=== PATIENT | female | born 1960 | race African-American/Black ===

== ENCOUNTER 2017-06-11 16:31 | Emergency (ER) | payer SELFPAY ==
[2017-06-11 16:36] VITALS: BP 153/87; PULSE 96; TEMP 97.8; BMI 22.3
[2017-06-11] MEDS ORDERED: IBUPROFEN 400 MG TABLET (FP) PO ONE ×2 (17:29→17:32)
[2017-06-11] MEDS ORDERED: ALBUTEROL SO4 2.5/IPRATROPIUM 0.5 INH SOL 3 ML VIAL.NEB. NEB ONE ×2 (17:30→17:32)
--- NOTE | 2017-06-11 17:37 | PDOC ---
History of Present Illness - General Chief Complaint: Cold Symptoms Stated Complaint: COLD SYMPTOMS Time Seen by Provider: 06/11/17 17:11 History Source: Patient Exam Limitations: No Limitations - History of Present Illness Initial Comments: 06/11/17 17:30 Here with complaints of more than a week of cough, pleuritic chest pain, some dizziness with a strong cough, and yellow phlegm production that started yesterday. Has not taken temperature but thinks may have had fevers and chills a few days ago. Has taken no medication for relief of symptoms and states has been unable to buy any medicines because she has no insurance or any money. Timing/Duration: reports: intermittent Severity: reports: moderate Associated Symptoms: reports: chest pain/soreness, cough, fever/chills, lightheadedness, nasal congestion Past History - Past Medical History Allergies/Adverse Reactions: Allergies Allergy/AdvReac Type Severity Reaction Status Date / Time No Known Drug Allergies Allergy Verified 06/11/17 16:36 Home Medications: Ambulatory Orders Acetaminophen 500 mg PO Q6H #14 tablet 06/11/17 Azithromycin [Zithromax -] 250 mg PO UTDICT #6 tab 06/11/17 COPD: No Diabetes: (borderline) HTN: Yes - Immunization History Immunization Up to Date: No - Suicide/Smoking/Psychosocial Hx Smoking History: Never smoked Have you smoked in the past 12 months: No If you are a former smoker, when did you quit?: 30YRS AGO Information on smoking cessation initiated: No Hx Alcohol Use: No Drug/Substance Use Hx: No Substance Use Type: None Respiratory Specific PMHX - Complaint Specific PMHX Bronchitis: No Pneumonia: No Review of Systems - Review of Systems Able to Perform ROS?: Yes Is the patient limited Amharic proficient: Yes Constitutional: Yes: Symptoms Reported, See HPI, Fever, Malaise HEENTM: Yes: Symptoms Reported, See HPI, Nose Congestion Respiratory: Yes: See HPI, Cough, Orthopnea, Wheezing Cardiac (ROS): Yes: See HPI, Chest Pain. No: Symptoms Reported ABD/GI: Yes: Symptoms Reported Musculoskeletal: Yes: Symptoms Reported Integumentary: Yes: Symptoms Reported All Other Systems: Reviewed and Negative *Physical Exam - Vital Signs Last Vital Signs Temp Pulse Resp BP Pulse Ox 97.8 F 96 H 19 153/87 100 06/11/17 16:33 06/11/17 16:33 06/11/17 16:33 06/11/17 16:33 06/11/17 16:33 - Physical Exam General Appearance: Yes: Nourished, Appropriately Dressed, Apparent Distress, Mild Distress HEENT: positive: JULES, TMs Normal (ingested but landmarks easily visualized), Pharynx Normal (posterior sinus drainage), Rhinorrhea Neck: positive: Supple. negative: Tender, Lymphadenopathy (R), Lymphadenopathy (L) Respiratory/Chest: positive: Lungs Clear (course with some and expiratory wheezing throughout. Some clearing with cough), Normal Breath Sounds Gastrointestinal/Abdominal: positive: Soft. negative: Tender Extremity: positive: Normal Capillary Refill, Normal Inspection, Normal Range of Motion Integumentary: positive: Normal Color, Dry, Warm, Pale Neurologic: positive: behavioral specialist II-XII NML intact, Fully Oriented, Alert, Normal Mood/ Affect, Normal Response, Motor Strength 5/5 Heart Score/ECG Review - ECG Intrepretation Rhythm: Regular Rhythm - ECG Impressions Normal ECG: Yes Non-specific ST Elevation: No Ischemic Changes: No Progress Note - Progress Note Progress Note: Acute bronchitis, patient refuses DuoNeb due to the fact she has never used inhaler lesion medication before. When explained the mechanism and the cause patient continues to refuse that medication. Patient has been resistant for Medicaid of therapy but agrees to having prescriptions for Zithromax to treat a bronchitis, and Tylenol sent to [facility] pharmacy. When asked why she wasn't seeing a doctor, I told her that she had been triaged to fast track and the physicians do not work in fast track. When offered to be seen by a physician and explained would need to be re-qued in the waiting room patient refused and stated she would go to pharmacy to sweet pickle maker these medications. *DC/Admit/Observation/Transfer Diagnosis at time of Disposition: Bronchitis - Discharge Dispostion Disposition: HOME Condition at time of disposition: Stable Admit: No - Referrals - Patient Instructions Printed Discharge Instructions: DI for Acute Bronchitis Additional Instructions: Rest, drink lots of fluids: Teas, water, soups, Pedialyte Saltwater gargles Steamy showers/seem to face break up mucus Avoid contact with others until fevers and cough resolved Lots of handwashing and good hygiene Continue [id number] medications for symptomatic relief Tylenol or Motrin for fever and pain Azithromycin, antibiotic for treatment of bronchitis Followup with private physician in one to 2 days as needed Return to emergency department for worsened symptoms, fevers, dehydration - Post Discharge Activity
--- NOTE | 2017-06-12 10:12 | EKG ---
Test Reason : Blood Pressure : / mmHG Vent. Rate : 084 BPM Atrial Rate : 084 BPM P-R Int : 170 ms QRS Dur : 088 ms QT Int : 362 ms P-R-T Axes : 073 048 067 degrees QTc Int : 427 ms NORMAL SINUS RHYTHM NORMAL ECG WHEN COMPARED WITH ECG OF 03-APR-2017 14:04, NO SIGNIFICANT CHANGE WAS FOUND Confirmed by MD HAILEE, MELANIE ([id number]) on 06/12/2017 10:11:38 AM Referred By: Confirmed By:MELANIE STEPHEN MD
== END 2017-06-11 17:53 | disposition home or self-care (01) ==
LOC: JERFT 16:31
PROC: 3E0F7GC Introduction of Other Therapeutic Substance into Respiratory Tract, Via Natural or Artificial Opening (ICD-10-PCS; principal; 2017-06-11)
DX: J40 Bronchitis, not specified as acute or chronic (principal)
CPT/HCPCS: 93005; 93010; 99281-25

== ENCOUNTER 2018-06-09 13:09 | Emergency (ER) | payer SELFPAY ==
[2018-06-09 13:15] VITALS: BP 155/89; PULSE 104; TEMP 97.8; BMI 23.8
--- NOTE | 2018-06-09 13:15 | PDOC ---
Rapid Medical Evaluation Time Seen by Provider: 06/09/18 13:10 Medical Evaluation: Allergies Allergy/AdvReac Type Severity Reaction Status Date / Time No Known Drug Allergies Allergy Verified 01/20/18 13:33 06/09/18 13:11 I have performed a brief in-person evaluation of this patient. The patient presents with a chief complaint of: sore throat x1 week, hoarseness Pertinent physical exam findings: VSS. AF. OP- cobblestoning present. No erythema, lesions, exudates. Lungs CTAB I have ordered the following: nothing The patient will proceed to the ED for further evaluation. Discharge Disposition - Diagnosis Pharyngitis - Referrals - Patient Instructions - Post Discharge Activity
[2018-06-09 14:27] LABS: URINE APPEARANCE CLOUDY; URINE BILIRUBIN NEGATIVE (<2.0 mg/dL); URINE GLUCOSE (UA) NEGATIVE (NEGATIVE); URINE KETONE NEGATIVE (NEGATIVE); URINE LEUK ESTERASE NEGATIVE (NEGATIVE); URINE NITRITE NEGATIVE (NEGATIVE); URINE PROTEIN 2+ (NEGATIVE)
[2018-06-09 14:29] LABS: URINE COLOR DK YELLOW
[2018-06-09 14:37] LABS: EPI CELLS RARE /HPF (FEW); URINE BACTERIA MANY /hpf (NONE SEEN); URINE MUCUS FEW; YEAST MODERATE
--- NOTE | 2018-06-09 14:54 | PDOC ---
History of Present Illness - General Chief Complaint: Sore Throat Stated Complaint: EVALUATION Time Seen by Provider: 06/09/18 13:10 - History of Present Illness Initial Comments: 06/09/18 14:49 57 y/o homeless unkept lady denies comorbities presents for evaluation of dysuria, dark tea colored urine, and malise x 3 days Past History - Past Medical History Allergies/Adverse Reactions: Allergies Allergy/AdvReac Type Severity Reaction Status Date / Time No Known Drug Allergies Allergy Verified 06/09/18 13:15 Home Medications: Ambulatory Orders NK [No Known Home Medication] 06/09/18 COPD: No Diabetes: Yes (borderline) HTN: Yes - Immunization History Immunization Up to Date: No - Suicide/Smoking/Psychosocial Hx Smoking History: Never smoked Have you smoked in the past 12 months: No If you are a former smoker, when did you quit?: 30YRS AGO Information on smoking cessation initiated: No Hx Alcohol Use: No Drug/Substance Use Hx: No Substance Use Type: None Review of Systems - Review of Systems Constitutional: No: Fever : Yes: Dysuria *Physical Exam - Vital Signs Last Vital Signs Temp Pulse Resp BP Pulse Ox 97.8 F 104 H 18 155/89 99 06/09/18 13:13 06/09/18 13:13 06/09/18 13:13 06/09/18 13:13 06/09/18 13:13 - Physical Exam Comments: 06/09/18 14:50 HEAD: NC/AT EYES: Conjuntiva clear Ears: Canals and TM's normal NOSE: No d/c THROAT: Moist mucous membrances, oral pharanx clear, uvula midline NECK: Supple without adenopathy CARDIAC: S1 S2 LUNGS: CTA Full and Equal breath sounds ABDOMEN: Soft NT ND MS: Full ROM in all joints without edema NEUROLOGIC: No gross sensory or motor deficits, NVID SKIN: Normal color and temperature no lesions or rashes General Appearance: Yes: Disheveled Moderate Sedation - Procedure Monitoring Vital Signs: Procedure Monitoring Vital Signs Temperature 97.8 F 06/09/18 13:13 Pulse Rate 104 H 06/09/18 13:13 Respiratory Rate 18 06/09/18 13:13 Blood Pressure 155/89 06/09/18 13:13 O2 Sat by Pulse Oximetry (%) 99 06/09/18 13:13 ED Treatment Course - ADDITIONAL ORDERS Additional order review: Laboratory Results 06/09/18 14:00 Urine Color Dk yellow Urine Appearance Cloudy Urine pH 5.0 Ur Specific Payne 1.024 Urine Protein 2+ H Urine Glucose (UA) Negative Urine Ketones Negative Urine Blood 3+ H Urine Nitrite Negative Urine Bilirubin Negative Urine Urobilinogen 2.0 H Ur Leukocyte Esterase Negative Urine WBC (Auto) 14 Urine RBC (Auto) 2379 Ur Epithelial Cells Rare Urine Bacteria Many Urine Mucus Few Urine Yeast Moderate Medical Decision Making - Medical Decision Making 06/09/18 14:50 CBC and Comp ordered after UA reviewed, concerned about renal insuffiency and new onset DM, discussed with pt who refused blood work and elected to sign out AMA *DC/Admit/Observation/Transfer Diagnosis at time of Disposition: Dysuria Diagnosis at time of Disposition: (Ruled Out): Pharyngitis - Discharge Dispostion Disposition: AGAINST MEDICAL ADVICE Condition at time of disposition: Stable Decision to Admit order: No - Referrals Referrals: Sandy Tao MD [Staff Physician] - - Patient Instructions Printed Discharge Instructions: DI for Dysuria -- Adult Additional Instructions: Return to the ER should you require further treatment or you have further concerns, please follow up with a primary care physician in 1-2 days for futher evlaution - Post Discharge Activity
== END 2018-06-09 15:10 | disposition left against medical advice (07) ==
LOC: JERFT 13:09
DX: J02.9 Acute pharyngitis, unspecified (principal); R30.0 Dysuria; E11.9 Type 2 diabetes mellitus without complications
CPT/HCPCS: 81003; 81015; 99281-25

== ENCOUNTER → 2020-11-19 | Emergency (ER) | payer SELFPAY ==
[2020-11-19 13:52] VITALS: BP 160/85; PULSE 84; TEMP 98.8; BMI 34.2
== END ==
LOC: JERFT 13:40
DX: M25.112 Fistula, left shoulder (principal)
CPT/HCPCS: 99281-25

== ENCOUNTER 2023-09-15 19:02 | Emergency (ER) | payer SELFPAY ==
[2023-09-15 19:10] VITALS: BP 170/69; PULSE 72; RESP 18; TEMP 98.2; BMI 36.2
[2023-09-15] MEDS ORDERED: IBUPROFEN 400 MG TABLET (FP) PO ONE (20:42)
[2023-09-15] MEDS: IBUPROFEN 400 MG TABLET (FP) PO ONE (20:45)
== END 2023-09-15 21:06 | disposition home or self-care (01) ==
LOC: JERFT 19:02
DX: M79.644 Pain in right finger(s) (principal); M19.041 Primary osteoarthritis, right hand
CPT/HCPCS: 73140-TC-RT-FY; 99283-25

== ENCOUNTER 2024-04-02 16:17 | Emergency (ER) | payer SELFPAY ==
[2024-04-02 16:35] VITALS: BP 155/78; PULSE 84; RESP 16; TEMP 98; BMI 32.9
== END 2024-04-02 19:32 | disposition home or self-care (01) ==
LOC: JER 16:17 → JERFT 16:17
DX: M25.561 Pain in right knee (principal); M25.461 Effusion, right knee
CPT/HCPCS: 73562-TC-RT-FY; 93971-TC; 99284-25

== ENCOUNTER 2024-04-06 14:44 | Emergency (ER) | payer SELFPAY ==
[2024-04-06 14:52] VITALS: TEMP 98.2; BMI 34.3
[2024-04-06 16:02] LABS: BASO % 0.6 % (0-2.0); EOS % 5.9 % (0-4.5); HEMATOCRIT 35.5 % (32.4-45.2); HEMOGLOBIN 11.8 GM/dL (10.7-15.3); MCH 28.1 pg (25.7-33.7); MCHC 33.3 g/dl (32.0-36.0); MEAN CELL VOLUME 84.3 fl (80-96); MEAN PLT VOLUME 7.4 fl (7.5-11.1); MONO % 9.1 % (3.8-10.2); NEUT % 56.4 % (42.8-82.8); PLATELET COUNT 256 10^3/uL (134-434); RBC 4.22 M/mm3 (3.60-5.2); RDW 14.4 % (11.6-15.6); WHITE BLOOD COUNT 4.6 K/mm3 (4.0-10.0)
[2024-04-06] MEDS ORDERED: ACETAMINOPHEN 500 MG TABLET (FP) ONE (16:04)
[2024-04-06] MEDS: ACETAMINOPHEN 500 MG TABLET (FP) PO ONE (16:08)
[2024-04-06 16:17] LABS: ACTIVATED PTT 33.8 SECONDS (25.2-36.5); INR 0.97 (0.83-1.09); PROTHROMBIN TIME (PATIENT) 11.2 SEC (9.7-13.0)
[2024-04-06 16:50] LABS: POTASSIUM 3.6 mmol/L (3.5-5.1)
[2024-04-06 16:51] LABS: CALCIUM 9.4 mg/dL (8.5-10.1)
[2024-04-06 16:53] LABS: ALBUMIN 3.7 g/dl (3.4-5.0); BLOOD UREA NITROGEN 16.4 mg/dL (7-18); MAGNESIUM 2.1 mg/dL (1.8-2.4)
[2024-04-06 16:55] LABS: CREATININE 0.9 mg/dL (0.55-1.3)
[2024-04-06 16:57] LABS: BILIRUBIN,TOTAL 0.5 mg/dL (0.2-1); TOT PROT 7.4 g/dl (6.4-8.2)
[2024-04-06 17:01] LABS: N-TERMINAL BNP 76.4 pg/ml (5-125)
[2024-04-06 18:04] VITALS: BP 143/75; PULSE 82; RESP 14
== END 2024-04-06 19:26 | disposition home or self-care (01) ==
LOC: JER 14:44
DX: R07.89 Other chest pain (principal); R06.02 Shortness of breath; R11.0 Nausea
CPT/HCPCS: 36415; 71045-TC-FY; 71275-TC; 80053; 82550; 82553; 83735; 83880; 84484; 85025; 85379; 85610; 85730; 86850; 86900; 86901; 93005; 93010; 99285-25

== ENCOUNTER 2024-07-21 18:27 | Inpatient (IN) | payer SELFPAY ==
[2024-07-21 20:33] LABS: BASO % 1.2 % (0-2.0); HEMATOCRIT 32.4 % (32.4-45.2); HEMOGLOBIN 10.6 GM/dL (10.7-15.3); LYMPH % 21.4 % (8-40); MCH 27.3 pg (25.7-33.7); MCHC 32.8 g/dl (32.0-36.0); MEAN CELL VOLUME 83.3 fl (80-96); MEAN PLT VOLUME 7.3 fl (7.5-11.1); MONO % 7.8 % (3.8-10.2); NEUT % 60.6 % (42.8-82.8); PLATELET COUNT 285 10^3/uL (134-434); RBC 3.89 M/mm3 (3.60-5.2); RDW 14.6 % (11.6-15.6); WHITE BLOOD COUNT 5.9 K/mm3 (4.0-10.0)
[2024-07-21 20:45] LABS: INR 1.05 (0.83-1.09); PROTHROMBIN TIME (PATIENT) 11.5 SEC (9.7-13.0)
[2024-07-21 20:47] LABS: ACTIVATED PTT 32.3 SECONDS (25.2-36.5)
[2024-07-21 20:52] LABS: POTASSIUM 3.4 mmol/L (3.5-5.1)
[2024-07-21 20:54] LABS: CALCIUM 8.9 mg/dL (8.5-10.1)
[2024-07-21 20:55] LABS: BLOOD UREA NITROGEN 16.1 mg/dL (7-18); MAGNESIUM 1.9 mg/dL (1.8-2.4)
[2024-07-21 20:58] LABS: CREATININE 0.8 mg/dL (0.55-1.3)
[2024-07-21 20:59] LABS: BILIRUBIN,TOTAL 0.2 mg/dL (0.2-1)
[2024-07-21] MEDS ORDERED: ACETAMINOPHEN INJECTION 100 ML ONE ×2 (21:14→22:05)
[2024-07-21 21:49] LABS: HIV INTERPRETATION NEGATIVE (NEGATIVE)
[2024-07-21] MEDS: SODIUM CHLORIDE 0.9% 500 ML INFUS.BAG IV ONE (22:11)
[2024-07-21] MEDS: ACETAMINOPHEN 1000 MG/100 ML BAG IVPB ONE (22:11)
[2024-07-21] MEDS: VANCOMYCIN HCL IN 5 % DEXTROSE 1,500 MG/300 ML BAG IVPB ONE (22:45)
[2024-07-21] MEDS: VANCOMYCIN HCL 1,500 MG in DEXTROSE 5%-WATER - 500 ML IVPB ONE (23:08)
[2024-07-21 23:35] LABS: ERYTHROCYTE SEDIMENTATION RATE 34 mm/hr (0-30)
[2024-07-21 23:52] LABS: N-TERMINAL BNP 58.6 pg/ml (5-125)
[2024-07-22] MEDS ORDERED: CLINDAMYCIN HCL 150 MG CAPSULE (FP) ONE (02:44)
[2024-07-22] MEDS ORDERED: MORPHINE SULFATE 2 MG/ML SYRINGE ONE (02:45)
[2024-07-22] MEDS ORDERED: SENNOSIDES 8.6MG TABLET (FP) PO ONE (02:45)
[2024-07-22] MEDS ORDERED: POTASSIUM CHLORIDE ORAL LIQUID 20 MEQ/15 ML ONE (02:45)
[2024-07-22] MEDS: SENNOSIDES 8.6MG TABLET (FP) PO SCH (03:00)
[2024-07-22] MEDS: MORPHINE SULFATE 2 MG/ML SYRINGE IVPUSH ONE (03:00)
[2024-07-22] MEDS: POTASSIUM CHLORIDE ORAL LIQUID 20 MEQ/15 ML PO ONE (03:00)
[2024-07-22] MEDS: CLINDAMYCIN HCL 150 MG CAPSULE (FP) PO SCH (03:01)
[2024-07-22] MEDS: ENOXAPARIN NA (PORCINE) 40 MG/0.4 ML DISP.SYRIN SQ SCH (09:20)
[2024-07-22] MEDS: POLYETHYLENE GLYCOL (HEALTHYLAX) 3350 17 GM PACKET PO SCH (09:20)
[2024-07-22] MEDS: LISINOPRIL 5 MG TABLET PO SCH (09:21)
[2024-07-22 12:00] LABS: HEMATOCRIT 31.2 % (32.4-45.2); HEMOGLOBIN 10.4 GM/dL (10.7-15.3); MCH 27.7 pg (25.7-33.7); MCHC 33.3 g/dl (32.0-36.0); MEAN CELL VOLUME 83.3 fl (80-96); MEAN PLT VOLUME 7.6 fl (7.5-11.1); PLATELET COUNT 267 10^3/uL (134-434); RBC 3.74 M/mm3 (3.60-5.2); RDW 14.4 % (11.6-15.6); WHITE BLOOD COUNT 4.5 K/mm3 (4.0-10.0)
[2024-07-22 12:23] LABS: POTASSIUM 3.4 mmol/L (3.5-5.1)
[2024-07-22 12:27] LABS: ALBUMIN 2.9 g/dl (3.4-5.0)
[2024-07-22 12:29] LABS: CALCIUM 8.8 mg/dL (8.5-10.1)
[2024-07-22 12:34] LABS: TOT PROT 6.3 g/dl (6.4-8.2)
[2024-07-22 12:35] LABS: BILIRUBIN,TOTAL 0.3 mg/dL (0.2-1); CREATININE 0.7 mg/dL (0.55-1.3)
[2024-07-23 09:56] LABS: HEMATOCRIT 31.7 % (32.4-45.2); HEMOGLOBIN 10.6 GM/dL (10.7-15.3); MCH 27.7 pg (25.7-33.7); MCHC 33.4 g/dl (32.0-36.0); MEAN PLT VOLUME 7.7 fl (7.5-11.1); PLATELET COUNT 261 10^3/uL (134-434); RBC 3.82 M/mm3 (3.60-5.2); RDW 14.5 % (11.6-15.6); WHITE BLOOD COUNT 4.6 K/mm3 (4.0-10.0)
[2024-07-23 10:14] LABS: POTASSIUM 3.5 mmol/L (3.5-5.1)
[2024-07-23 10:17] LABS: CALCIUM 8.2 mg/dL (8.5-10.1)
[2024-07-23 10:18] LABS: BLOOD UREA NITROGEN 7.8 mg/dL (7-18); MAGNESIUM 1.9 mg/dL (1.8-2.4)
[2024-07-23 10:21] LABS: CREATININE 0.8 mg/dL (0.55-1.3); PHOSPHOROUS 3.3 mg/dL (2.5-4.9)
[2024-07-24] MEDS: CLINDAMYCIN 300 MG PREMIX IVPB 300 MG/50 ML BAG IVPB SCH (02:00)
[2024-07-24 11:08] VITALS: BMI 38.7
[2024-07-24] MEDS: ASCORBIC ACID 500 MG TABLET (FP) PO SCH (12:35)
[2024-07-24] MEDS: MULTIVITAMINS (DAILY MVI) TABLET (FP) PO SCH (12:35)
[2024-07-24] MEDS: CLINDAMYCIN HCL 150 MG CAPSULE (FP) PO SCH ×2 (12:35→21:32)
[2024-07-24] MEDS: GABAPENTIN 100 MG CAPSULE PO SCH (14:46)
[2024-07-24] MEDS: ACETAMINOPHEN 500 MG TABLET (FP) PO SCH (14:47)
[2024-07-24 15:18] LABS: URINE BARBITURATES NEGATIVE (NEGATIVE)
[2024-07-24 15:19] LABS: METHADONE, UR NEGATIVE (NEGATIVE); OPIATES, URI NEGATIVE (NEGATIVE); PHENCYCLIDINE,URINE NEGATIVE (NEGATIVE); URINE BENZODIAZEPINES NEGATIVE (NEGATIVE)
[2024-07-24 15:20] LABS: COCAINE, UR NEGATIVE (NEGATIVE); URINE AMPHETAMINES NEGATIVE (NEGATIVE)
[2024-07-24 21:31] VITALS: RESP 18
[2024-07-25 13:10] VITALS: TEMP 98.1
[2024-07-25 18:16] VITALS: BP 135/75; PULSE 79
== END 2024-07-25 19:50 | disposition home or self-care (01) | DRG 383 ==
LOC: JER 18:27 → JERBED 22:08 → J5S 07-22 06:34
PROVIDERS: ADMIT Student in an Organized Health Care Education/Training Program; ATTEND Internal Medicine
DX: L03.116 Cellulitis of left lower limb (principal); I10 Essential (primary) hypertension; D72.10 Eosinophilia, unspecified; N28.1 Cyst of kidney, acquired; E66.9 Obesity, unspecified; Z68.38 Body mass index [BMI] 38.0-38.9, adult; B35.1 Tinea unguium; L03.115 Cellulitis of right lower limb; K44.9 Diaphragmatic hernia without obstruction or gangrene; E87.6 Hypokalemia; K59.00 Constipation, unspecified; R91.1 Solitary pulmonary nodule; R73.03 Prediabetes; Z59.00 Homelessness unspecified
CPT/HCPCS: 0241U-QW; 36415; 71045-TC-FY; 73590-TC-LT-FY; 74177-TC; 80048; 80053; 80307; 83036; 83605; 83690; 83735; 83880; 84100; 84484; 85025; 85027; 85610; 85651; 85730; 86140; 86803; 87040; 87081; 87209; 87389; 93005; 93010; 93306-TC; 93970-TC; 97116-GP; 97161-GP; 99285-25; J0131

== ENCOUNTER 2024-08-31 14:52 | Emergency (ER) | payer SELFPAY ==
[2024-08-31 15:05] VITALS: BP 148/89; PULSE 92; RESP 18; TEMP 98.3; BMI 35.1
[2024-08-31] MEDS ORDERED: ACETAMINOPHEN 500 MG TABLET (FP) ONE (16:21)
[2024-08-31] MEDS: ACETAMINOPHEN 500 MG TABLET (FP) PO ONE (16:23)
[2024-08-31] MEDS ORDERED: IBUPROFEN 400 MG TABLET (FP) PO ONE (18:04)
[2024-08-31] MEDS: IBUPROFEN 600 MG TABLET (FP) PO ONE (18:12)
== END 2024-08-31 18:18 | disposition home or self-care (01) ==
LOC: JERFT 14:52
DX: M79.651 Pain in right thigh (principal)
CPT/HCPCS: 72170-TC-FY; 73502-TC-RT-FY; 73560-TC-RT-FY; 99284-25